=== PATIENT | female | born 1990 | race American Indian/Alaskan Native ===

== ENCOUNTER 2025-07-12 08:55 | Emergency (ER) | payer SELFPAY ==
[2025-07-12 08:56] VITALS: BMI 58.4
[2025-07-12 09:08] VITALS: BP 174/96; PULSE 75; RESP 18; TEMP 36.7; O2SAT 99
--- NOTE | 2025-07-12 09:40 | PD.EDRME ---
Rapid Medical Screening Exam RME Arrival date/time: 07/12/25 08:55 This is a 34-year-old female that comes into the emergency room with complaints of nausea vomiting diarrhea for the past 3 days. patient reports gas pains. Patient denies any urinary symptoms Chief Complaint: Nausea/Vomiting/Diarrhea Time Seen by Provider: 07/12/25 09:04 Vital signs: Vital Signs Temperature 98.0 F 07/12/25 09:08 Pulse Rate 75 07/12/25 09:08 Respiratory Rate 18 07/12/25 09:08 Blood Pressure 174/96 H 07/12/25 09:08 Pulse Oximetry (%) 99 07/12/25 09:08 Oxygen Delivery Method Room Air 07/12/25 09:08
--- NOTE | 2025-07-12 09:42 | PC.NURSE ---
PT WANTING TO LEAVE DUE TO PROVIDER NOT GIVING ME AN IV RIGHT NOW. WAS INFORMED BY PROVIDER THAT SHE WOULD GET LABS CHECKED BECAUSE THE PT MAY NOT NEED AN IV, AND THAT MADE PT UPSET. SIGNED AMA FORM
== END 2025-07-12 09:47 | disposition left against medical advice (07) ==
LOC: SERX 09:50
PROVIDERS: Emergency Provider Nurse Practitioner Family
DX: R11.2 Nausea with vomiting, unspecified (principal); R19.7 Diarrhea, unspecified; R14.1 Gas pain; Z53.21 Procedure and treatment not carried out due to patient leaving prior to being seen by health care provider
CPT/HCPCS: 80053; 81001; 81025; 83690; 85025; 87502; 99281; 99283

== ENCOUNTER 2025-09-21 06:48 | Emergency (ER) | payer MEDICAID, SELFPAY ==
[2025-09-21 06:50] VITALS: BMI 53.1
[2025-09-21 07:18] VITALS: BP 167/96; PULSE 76; RESP 18; TEMP 36.7; O2SAT 97; BMI 53.1
--- NOTE | 2025-09-21 07:26 | XR_ITS ---
Examination: Abdomen AP single view Technique: AP portable supine abdomen, single view Exam date and time: September 21, 2025, 0909 hours INDICATIONS: Abdominal pain and constipation beginning 2 months ago FINDINGS: Moderate stool throughout the colon No obstruction. Surgical clips upper right abdomen. No free air. IMPRESSION: Nonobstructive bowel gas pattern
--- NOTE | 2025-09-21 07:26 | PD.EDRME ---
Rapid Medical Screening Exam E Arrival date/time: 09/21/25 06:48 This is a 35-year-old female that comes into the emergency room with complaints of generalized abdominal pain and constipation. Patient also complains of having a hard time urinating. Patient states she has taken mag citrate and Dulcolax suppositories and she has not been able to have a bowel movement. Patient denies vomiting. Patient reports having a fever. I have greeted and performed a focused initial assessment of this patient. Initial appropriate labs ordered at this time. A comprehensive ED assessment and evaluation of the patient and analysis of all test and completion of medical decision making process will be conducted by additional ED provider. Chief Complaint: Abdominal Pain Time Seen by Provider: 09/21/25 06:56 Vital signs: Vital Signs Temperature 98.0 F 09/21/25 07:18 Pulse Rate 76 09/21/25 07:18 Respiratory Rate 18 09/21/25 07:18 Blood Pressure 167/96 H 09/21/25 07:18 Pulse Oximetry (%) 97 09/21/25 07:18 Oxygen Delivery Method Room Air 09/21/25 07:18 Exam: Awake and alert, breathing even and unlabored, generalized abdominal pain Clinical Impression: Abdominal pain, constipation
[2025-09-21 08:07] LABS: Collection Type, Urine Voided; Squamous Epithelial Cell,Urine 0 /hpf (0-5)
[2025-09-21 08:14] LABS: Basophils # (Auto) 0.0 Thou/mm3 (0.0-0.2); Basophils % (Auto) 0 % (0-2.5); Eosinophils # (Auto) 0.5 Thou/mm3 (0.0-0.5); Eosinophils % (Auto) 4 % (0-10); Hematocrit 37.0 % (36.0-46.0); Hemoglobin 12.2 g/dL (12.0-16.0); Immature Granulocytes Auto 0.06 Thou/mm3 (0.00-0.00); Lymphocytes # (Auto) 2.1 Thou/mm3 (1.0-4.8); Lymphocytes % (Auto) 15 % (10-50); Mean Corpuscular HGB Conc 33.0 g/dl (31.0-37.0); Mean Corpuscular Hemoglobin 28.0 pg (25.0-35.0); Mean Corpuscular Volume 85 fL (80-100); Monocytes # (Auto) 0.9 Thou/mm3 (0.0-0.8); Monocytes % (Auto) 7 % (0-12); Neutrophils # (Auto) 10.4 Thou/mm3 (1.8-7.7); Neutrophils % (Auto) 74 % (37-80); Nucleated Red Blood Cell # 0.00 Thou/mm3 (0.00-0.00); Nucleated Red Blood Cell % 0 /100 WBC (0); Platelet Count 359 Thou/mm3 (140-440); RDW Standard Deviation 53.2 fL (36.4-46.3); Red Blood Count 4.35 Miln/mm3 (4.00-5.20); White Blood Count 14.0 Thou/mm3 (3.6-11.0)
[2025-09-21 08:27] LABS: Bilirubin,Urine Negative (Negative); Blood,Urine Negative (Negative); Clarity,Urine Clear (Clear/Hazy); Color,Urine Colorless (Lt Yel-Yel); Culture Indicated,Urine Not Indicated; Glucose, Urine Negative (Negative); Ketones,Urine Negative (Negative); Leukocyte Esterase,Urine Negative (Negative); Nitrite,Urine Negative (Negative); PH,Urine 6.0 (5.0-7.0); Protein,Urine Negative (Neg - Trace); RBC,Urine 1 /hpf (0-3); Specific Gravity,Urine 1.006 (1.001-1.035); Urobilinogen,Urine Negative mg/dL (0.0-1.0); WBC,Urine 1 /hpf (0-5)
[2025-09-21 08:32] LABS: Albumin, Serum 4.5 gm/dL (3.5-5.0); Albumin/Globulin Ratio 1.6 (1.2-2.2); Alkaline Phosphatase 73 U/L (46-116); Anion Gap 10 (7-16); Aspartate Amino Transferase 11 U/L (0-34); BUN/Creatinine Ratio 13 Ratio (12-20); Bilirubin,Total 0.3 mg/dL (0.3-1.2); Blood Urea Nitrogen 8 mg/dL (9-23); Calcium 9.4 mg/dL (8.3-10.6); Calcium (Corrected) 9.4 mg/dL (8.5-10.1); Carbon Dioxide 29.1 mMol/L (20.0-31.0); Chloride 104 mMol/L (98-107); Creatinine (Component) 0.6 mg/dL (0.6-1.3); Estimated Creatinine Clearance 175.7 mL/min (>60); Globulin 2.8 gm/dL (2.3-3.5); Glucose 104 mg/dL (74-106); Lipase 46 U/L (12-53); Osmolality,Calculated 283 (275-295); Potassium 3.9 mMol/L (3.4-5.1); Sodium 143 mMol/L (136-145); Total Protein 7.3 gm/dL (5.7-8.2); eGFR > 60 See Note
[2025-09-21 08:39] LABS: HCG Qualitative,Urine Negative
[2025-09-21 08:41] LABS: Alanine Aminotransferase 10 U/L (10-49)
[2025-09-21 08:51] LABS: Amphetamine/Methamp Scrn,U Negative (Negative); Barbiturate Screen,Urine Negative (Negative); Benzodiazepines Screen,Urine Negative (Negative); Benzoylecgonine Screen, Ur Negative (Negative); Fentanyl Screen,Urine Negative (Negative); Opiate Screen,Urine Negative (Negative); THC Screen,Urine Negative (Negative)
--- NOTE | 2025-09-21 11:19 | PD.EDABDPN ---
ED Abdominal Pain RME/HPI General Chief Complaint: Abdominal Pain Stated complaint: ABD PAIN, CONSTIPATED, NOT URINATING Time seen by provider: 09/21/25 06:56 Arrival date/time: 09/21/25 06:48 This is a 35-year-old female that comes into the emergency room with complaints of generalized abdominal pain and constipation. Patient also complains of having a hard time urinating. Patient states she has taken mag citrate and Dulcolax suppositories and she has not been able to have a bowel movement. Patient denies vomiting. Patient reports having a fever. RME / HPI RME / HPI narrative: 09/21/25 06:48 This is a 35-year-old female that comes into the emergency room with complaints of generalized abdominal pain and constipation. Patient also complains of having a hard time urinating. Patient states she has taken mag citrate and Dulcolax suppositories and she has not been able to have a bowel movement. Patient denies vomiting. Patient reports having a fever. I have greeted and performed a focused initial assessment of this patient. Initial appropriate labs ordered at this time. A comprehensive ED assessment and evaluation of the patient and analysis of all test and completion of medical decision making process will be conducted by additional ED provider. Exam: Awake and alert, breathing even and unlabored, generalized abdominal pain Impression: Abdominal pain, constipation Related Data Previous Rx's ?Medication ?Instructions ?Recorded polyethylene glycol 3350 17 gram 17 g PO QDAY #30 ea 09/21/25 oral powder packet (Miralax) sennosides 8.6 mg-docusate sodium 1 tab-cap PO BID #30 tabs 09/21/25 50 mg tablet (Senokot-S) metoclopramide HCl 10 mg tablet 10 mg PO Q6H PRN nausea and 09/24/25 (Reglan) vomiting #30 tabs sulfamethoxazole 800 1 tab PO BID #14 tabs 09/26/25 mg-trimethoprim 160 mg tablet (Bactrim DS) dicyclomine 20 mg tablet 20 mg PO QID PRN abdominal pain 10/02/25 #20 tabs Allergies Allergy/AdvReac Type Severity Reaction Status Date / Time No Known Allergies Allergy Verified 10/01/25 18:53 Review of Systems Review of Systems Systems Reviewed: All systems reviewed, normal except as documented Past Medical History Past Medical History Comments PMH COMMENT: See HPI ED Exam Narrative Physical exam: VITAL SIGNS: Reviewed. GENERAL APPEARANCE: Alert and interactive, follows commands, no acute distress HEAD AND FACE: Non-traumatic. ENT: PERRL, conjuctiva pink and clear, eyelid no trauma, Mucous membrane moist. NECK: Supple, nontender, no nuchal rigidity. CHEST: No tenderness, no crepitus, no paradoxical movement, no retractions. LUNGS: breathing even and unlabored HEART: Regular rate, cap refill less than 2 seconds ABDOMEN: Soft, nondistended, nontender to palpation NEUROLOGICAL: Gross motor function intact sensory function intact, Appropriate for age. MUSCULOSKELETAL: low back nontender, full range of motion. no midline tenderness, no meningismus, no step offs EXTREMITIES: No redness no swelling no skin breakdown on bilateral foot and leg. Distal neurovascular status intact bilateral foot SKIN: Color pink, dry Course Quality Measures none Orders Category Date Time Status XR abdomen 1V Stat Exams 09/21/25 07:26 Completed CBC Stat Lab 09/21/25 08:01 Completed Comprehensive Metabolic Panel Stat Lab 09/21/25 08:01 Completed Drug Screen,Urine Stat Lab 09/21/25 07:44 Completed HCG Qualitative,Urine Stat Lab 09/21/25 07:44 Completed Lipase Stat Lab 09/21/25 08:01 Completed Urinalysis, C/S if Indicated Stat Lab 09/21/25 07:44 Completed HYDROcodone*/APAP 5/325 [[place] 5/325] Med 09/21/25 10:19 Discontinued 1 tab PO X1 ONE Lactulose Syrup [Enulose Syrup] Med 09/21/25 11:12 Discontinued 20 gm PO X1 ONE Ondansetron Odt [Zofran Odt] Med 09/21/25 10:19 Discontinued 4 mg PO X1 ONE Vital Signs Vital signs: Vital Signs Temperature 98.0 F 09/21/25 07:18 Pulse Rate 76 09/21/25 07:18 Respiratory Rate 18 09/21/25 07:18 Blood Pressure 167/96 H 09/21/25 07:18 Pulse Oximetry (%) 97 09/21/25 07:18 Oxygen Delivery Method Room Air 09/21/25 07:18 Abdominal Pain MDM MDM Narrative MDM Narrative:: abdomen kub: FINDINGS: Moderate stool throughout the colon No obstruction. Surgical clips upper right abdomen. No free air. IMPRESSION: Nonobstructive bowel gas pattern I reviewed patient's labs. Patient has a white count of 14 hemoglobin of 12.2 and hematocrit of 37 platelet count of 359 BMP unremarkable UA unremarkable drug screen unremarkable. KUB shows some moderate stool throughout the colon. Patient states she just feels very constipated. There is a nonobstructive bowel gas pattern on KUB. Patient wants to go home patient wants to be given medication for constipation. I will give patient lactulose. Patient told that I was concerned about her white count being slightly elevated it sounds like her white count is elevated each time she is here. She did have 1 episode of nausea and vomiting but has not had any episodes since. I told patient that sometimes we need to order a CT scan of the abdomen pelvis to make sure nothing else going on. Patient just wants to be treated for constipation at this time. Patient states she will come back to the emergency room sooner if symptoms change or worsen. I will send patient home on Senokot and MiraLAX. I told patient that if symptoms change or worsen to come back to the emergency room. I told patient to follow-up with primary doctor to make sure that white count is going down. Patient feels comfortable plan of care and wants to go home. Patient verbalized understanding. Dragon dictation: Although this document has been carefully reviewed, there may still be some phonetic and other typographical errors. These errors are purely grammatical due to imperfections in the software program and should not be construed in any way to compromise the substance of the patient's medical care during this visit. Patient data External records reviewed:: [facility] previous records Clinical information provided by:: patient Social determinants that could affect healthcare access:: none Patient has the following chronic illnesses:: None How is presenting disease/condition affected by chronic disease/condition?: no chronic disease Evaluation data The following diagnostics were reviewed and interpreted by me:: radiology exam(s) Lab and/or radiology exams considered but not ordered:: None Interpretation Summary: See note Medications / Prescriptions Medications or Prescriptions considered but not ordered:: See note Medication administrations:: Medication Administration History Discontinued Medications Hydrocodone Bitart/Acetaminophen (Hydrocodone/Apap 5/325 Tablet) 1 tab PO X1 ONE Stop: 09/21/25 10:20 Last Admin: 09/21/25 11:46 Dose: 1 tab Documented By: Lactulose (Lactulose Syrup 20 Gm/30 Ml Udc) 20 gm PO X1 ONE; Protocol Stop: 09/21/25 11:13 Last Admin: 09/21/25 11:46 Dose: 20 gm Documented By: Ondansetron HCl (Ondansetron Odt 4 Mg Tabrap) 4 mg PO X1 ONE; Protocol Stop: 09/21/25 10:20 Last Admin: 09/21/25 11:45 Dose: 4 mg Documented By: See MAR Consultations Consultation(s) initiated? (list below): No Diagnosis Differential diagnosis abdominal pain: abdominal pain, calculus of kidney and other (Constipation UTI, ) Most likely diagnosis given after review of the tests above:: See note Admission Indicated Admission indicated?: not indicated Admission Request Was there a request for admission?: No Disposition Plan Disposition Plan: Discharge Discharge Attestation Discharge Attestation: The patient and all family members were given an opportunity to ask questions and understood the discharge instructions. Discharge instructions specifically effects, indications for sooner follow up or return to the emergency department, and the expected course of current diagnosis. Patient condition: Stable Discharge Plan Plan Patient Disposition: HOME (Self Care) Patient condition on transfer: Stable Prescriptions/Referrals Prescriptions/Med Rec: New polyethylene glycol 3350 [Miralax] 17 gram powder in packet 17 g PO QDAY Qty: 30 0RF sennosides-docusate sodium [Senokot-S] 8.6-50 mg tablet 1 tab-cap PO BID Qty: 30 0RF No Action metoclopramide HCl [Reglan] 10 mg tablet 10 mg PO Q6H PRN (Reason: nausea and vomiting) Qty: 30 0RF sulfamethoxazole-trimethoprim [Bactrim DS] 800-160 mg tablet 1 tab PO BID Qty: 14 0RF dicyclomine 20 mg tablet 20 mg PO QID PRN (Reason: abdominal pain) Qty: 20 0RF Referrals: Robert Tran MD [Primary Care Provider, Family Practice] - In 1 week Problem List Clinical Impression: Constipation, Abdominal pain, Leukocytosis Patient/Caregiver Discharge Instructions Discharge Activity: activity as tolerated Education Materials: Abdominal Pain, Treating Constipation, ED Constipation (Adult) Additional Instructions: Follow up with primary provider in 1-2 days. Come back to ED if symptoms change or worsen Print Language: Italian Stand Alone Forms: Visto Info., Patient Portal Info Letter PA/GAMING DEPARTMENT HEAD Supervising Physician PA/GAMING DEPARTMENT HEAD Supervising Physician: lux
[2025-09-21 11:36] VITALS: BMI 30.7
[2025-09-21] MEDS: ONDANSETRON ODT 4 MG TABRAP PO (11:45)
[2025-09-21] MEDS: HYDROcodone/APAP 5/325 TABLET 1 TAB PO (11:46)
[2025-09-21] MEDS: LACTULOSE SYRUP 20 GM/30 ML UDC PO (11:46)
== END 2025-09-21 12:06 | disposition home or self-care (01) ==
PROVIDERS: Emergency Provider Nurse Practitioner Family; PCP Family Medicine
DX: K59.00 Constipation, unspecified (principal); D72.829 Elevated white blood cell count, unspecified
CPT/HCPCS: 36415; 74018; 80053; 80307; 81001; 81025; 83690; 85025; 99283; Q0162; A9270

== ENCOUNTER 2025-09-24 05:47 | Emergency (ER) | payer MEDICAID, SELFPAY ==
[2025-09-24 05:48] VITALS: BMI 53.1
[2025-09-24 06:03] VITALS: BP 148/83; PULSE 76; RESP 16; TEMP 36.8; O2SAT 99
--- NOTE | 2025-09-24 07:10 | PC.NURSE ---
Report received from ANTONIO Modi. Pt PMH of HTN and constipation. Enema in place. This RN accessed pt, GCS 15, pt currently states she needs to use the restroom. VS stable, bed in low position with side rail up.
[2025-09-24 07:11] VITALS: BP 127/84; PULSE 70; RESP 18; TEMP 37; O2SAT 100
--- NOTE | 2025-09-24 08:05 | EDNOTE_ITS ---
ED Abdominal Pain RME/HPI General Chief Complaint: Abdominal Pain Stated complaint: constipation; no bm x 2 days Time seen by provider: 09/24/25 06:11 Arrival date/time: 09/24/25 05:47 35-year-old female currently on GLP-1 Zepbound presents with concerns for concerns for constipation patient reports no fever or vomiting. Patient reports not makes it is better or worse quality throbbing in nature patient was seen 2 days ago had comprehensive workup Limitations: no limitations Related Data Previous Rx's ?Medication ?Instructions ?Recorded polyethylene glycol 3350 17 gram 17 g PO QDAY #30 ea 1 11/22/24 oral powder packet (Miralax) sennosides 8.6 mg-docusate sodium 1 tab-cap PO BID #30 tabs 09/21/25 50 mg tablet (Senokot-S) metoclopramide HCl 10 mg tablet 10 mg PO Q6H PRN nause a and 09/24/25 (Reglan) vomiting #30 tabs Allergies Allergy/AdvReac Type Severity Reaction Status Date / Time No Known Allergies Allergy Verified 09/24/25 05:50 Review of Systems Review of Systems Systems Reviewed: All systems reviewed, normal except as documented Constitutional Constitutional: Reports system reviewed and no additional complaints, except as documented, Denies fever(s) and Denies headache(s) Eyes Eyes: Reports system reviewed and no additional complaints, except as documented and Denies blurry vision ENT Ears, Nose, Mouth, and Throat: Reports system reviewed and no additional complaints, except as documented, Denies headache(s), Denies nasal congestion and Denies nasal discharge Cardiovascular Cardiovascular: Reports system reviewed and no additional complaints, except as documented, Denies chest pain and Denies dyspnea Respiratory Respiratory: Reports system reviewed and no additional complaints, except as documented, Denies chest congestion, Denies cough and Denies dyspnea Gastrointestinal Gastrointestinal: Reports system reviewed and no additional complaints, except as documented, Reports abdominal pain and Reports constipation Integumentary/Breasts Skin/Breast: Reports system reviewed and no additional complaints, except as documented and Denies rash Neurologic Neurologic: Reports system reviewed and no additional complaints, except as documented, Reports as per HPI and Denies headache(s) Past Medical History Past Medical History CARDIAC: Negative Congestive Heart Failure RESPIRATORY: Negative Chronic Obstructive Pulmonary Disease (COPD) GENITOURINARY: Negative Renal Disease ENDOCRINE: Negative Diabetes Mellitus Type 1 or Diabetes Mellitus Type 2 Social History SMOKING STATUS: Former smoker ED Exam General Limitations: Present no limitations General appearance: Present alert and in no apparent distress Head Head exam: Present atraumatic, normocephalic and normal inspection Eye Eye exam: Present normal appearance, PERRL and EOMI; Absent conjunctival injection ENT ENT exam: Present normal exam, normal oropharynx and mucous membranes moist Neck Neck exam: Present normal inspection, full ROM and trachea midline Chest Chest inspection: Present normal inspection and symmetric chest wall rise Respiratory Respiratory exam: Present normal lung sounds bilaterally Cardiovascular Cardiovascular exam: Present regular rate, normal rhythm and normal heart sounds Abdominal Exam Abdominal exam: Present soft, tenderness and normal bowel sounds; Absent distention, guarding, rebound or rigidity Extremities Exam Extremities exam: Present normal inspection and full ROM Back Exam Back exam: Present normal inspection and full ROM Neurological Exam Neurological exam: Present alert, oriented X3 and CN II-XII intact Psychiatric Psychiatric exam: Present normal affect and normal mood Skin Skin exam: Present warm, dry, intact and normal color Course Quality Measures none Orders Category Date Time Status Enema Administration NOW Care 09/24/25 06:20 Completed Vital Signs Vital signs: Vital Signs Temperature 98.3 F 09/24/25 06:03 Pulse Rate 76 09/24/25 06:03 Respiratory Rate 16 09/24/25 06:03 Blood Pressure 148/83 H 09/24/25 06:03 Pulse Oximetry (%) 99 09/24/25 06:03 Oxygen Delivery Method Room Air 09/24/25 06:03 O2 saturation 99% room air within normal limits Abdominal Pain MDM MDM Narrative MDM Narrative:: 35-year-old female currently on GLP-1 Zepbound presents with concerns for concerns for constipation patient reports no fever or vomiting. Patient reports not makes it is better or worse quality throbbing in nature patient was seen 2 days ago had comprehensive workup Based on symptomatology symptoms are consistent with constipation I suspect is from the Zepbound Patient was given a soapsuds enema Patient reports complete relief of symptoms Patient discharged home in no distress to follow-up with primary care doctor in the next 24 to 48 hours and for any worsening symptoms to return to the ER immediately Patient data External records reviewed:: [facility] previous records Clinical information provided by:: patient Social determinants that could affect healthcare access:: none Patient has the following chronic illnesses:: None How is presenting disease/condition affected by chronic disease/condition?: exacerbated by Evaluation data The following diagnostics were reviewed and interpreted by me:: lab results and radiology exam(s) Lab and/or radiology exams considered but not ordered:: Reviewed labs and radiology from previous visit Interpretation Summary: Reviewed by me Medications / Prescriptions Medications or Prescriptions considered but not ordered:: Given Medication administrations:: Given Consultations Consultation(s) initiated? (list below): No Diagnosis Differential diagnosis abdominal pain: abdominal pain, acute appendicitis, constipation, pancreatitis and small bowel obstruction Most likely diagnosis given after review of the tests above:: Constipation Admission Indicated Admission indicated?: not indicated Admission Request Was there a request for admission?: No Disposition Plan Disposition Plan: Discharge Discharge Attestation Discharge Attestation: The patient and all family members were given an opportunity to ask questions and understood the discharge instructions. Discharge instructions specifically effects, indications for sooner follow up or return to the emergency department, and the expected course of current diagnosis. Patient condition: Stable Discharge Plan Plan Patient Disposition: HOME (Self Care) Discharge Disposition comment: Stable Prescriptions/Referrals Prescriptions/Med Rec: New metoclopramide HCl [Reglan] 10 mg tablet 10 mg PO Q6H PRN (Reason: nausea and vomiting) Qty: 30 0RF No Action polyethylene glycol 3350 [Miralax] 17 gram powder in packet 17 g PO QDAY Qty: 30 0RF sennosides-docusate sodium [Senokot-S] 8.6-50 mg tablet 1 tab-cap PO BID Qty: 30 0RF Referrals: No Primary/Family,Physician [Primary Care Provider] - In 1 week Problem List Clinical Impression: Constipation Patient/Caregiver Discharge Instructions Education Materials: ED Constipation (Adult) Additional Instructions: Please follow up with your primary care doctor in the next 24-48hrs for any worsening symptoms return here immediately Print Language: Slovak Stand Alone Forms: Jo Award Info., Patient Portal Info Letter PA/CONCESSIONS MANAGER Supervising Physician PA/CONCESSIONS MANAGER Supervising Physician: Dr. jarvis
--- NOTE | 2025-09-24 08:15 | PC.NURSE ---
Pt had a BM, provider notified
[2025-09-24 08:26] VITALS: BP 132/70; PULSE 67; RESP 17; TEMP 36.3; O2SAT 98
== END 2025-09-24 08:28 | disposition home or self-care (01) ==
PROVIDERS: Emergency Provider Emergency Medicine
DX: K59.00 Constipation, unspecified (principal)
CPT/HCPCS: 99282